=== PATIENT | male | born 1990 | race Caucasian/White ===

== ENCOUNTER 2023-10-27 16:29 | Emergency (ER) | payer MEDICAID ==
[~2023-10-27] VITALS: Ht 175.3 cm; Wt 90.7 kg
[2023-10-27 17:40] LABS: BASOPHILS % (AUTO) 0.2 % (0.0-2.0); EOSINOPHILS # (AUTO) 0.2 K/uL (0.0-0.7); EOSINOPHILS % (AUTO) 2.1 % (0.0-6.0); HEMATOCRIT 42 % (39-51); HEMOGLOBIN 14.2 g/dL (13.5-17.5); LYMPHOCYTES # (AUTO) 1.7 K/uL (0.8-4.8); LYMPHOCYTES % (AUTO) 22.3 % (20.0-44.0); MEAN CORPUSCULAR HEMOGLOBIN 30 PG (26.0-33.0); MEAN CORPUSCULAR HGB CONC 34 g/dl (31.0-36.0); MEAN CORPUSCULAR VOLUME 89 fL (80-96); MONOCYTES # (AUTO) 0.7 K/uL (0.1-1.30); MONOCYTES % (AUTO) 8.9 % (2.0-12.0); NEUTROPHILS % (AUTO) 66.5 % (43.0-81.0); PLATELET COUNT (AUTO) 198 K/uL (150-450); RED BLOOD CELL COUNT(AUTO) 4.67 MIL/uL (4.5-6.0); WHITE BLOOD COUNT (AUTO) 7.6 K/uL (4.3-11.0)
[2023-10-27 17:52] LABS: CALCIUM, SERUM 9.2 mg/dL (8.5-10.1); CARBON DIOXIDE 29 mmol/L (21-32); CHLORIDE 104 mmol/L (98-107); CREATININE 0.8 mg/dL (0.6-1.3); GLUCOSE 101 mg/dL (74-106); POTASSIUM 3.7 mmol/L (3.5-5.1); SODIUM SERUM 140 mmol/L (136-145); UREA NITROGEN, BLOOD 14 mg/dL (7-18)
[2023-10-27] MEDS ORDERED: IBUPROFEN 600 MG TABLET ONE (18:01)
[2023-10-27] MEDS: IBUPROFEN 600 MG TABLET PO ONE (18:01)
[2023-10-27 18:02] LABS: ALANINE AMINOTRANSFERASE 61 U/L (12-78); ALBUMIN 3.7 g/dL (3.4-5.0); ALKALINE PHOSPHATASE 92 U/L (46-116); ASPARTATE AMINOTRANSFERASE 21 U/L (15-37); BILIRUBIN,DIRECT 0.1 mg/dL (0.0-0.2); BILIRUBIN,TOTAL 0.5 mg/dL (0.2-1.0); NT-PRO BNP 36 pg/mL (0-125); TOTAL PROTEIN, SERUM 7.2 g/dL (6.4-8.2)
[2023-10-27 19:02] VITALS: BP 136/86; TEMP 98.1; O2SAT 98
== END 2023-10-27 19:02 | disposition home or self-care (01) ==
LOC: ER 16:29
DX: R07.89 Other chest pain (principal)
CPT/HCPCS: 36415; 71045-TC; 80048-TC; 80076-TC; 83880; 84484-TC; 85025-TC

== ENCOUNTER 2024-04-21 10:52 | Emergency (ER) | payer MEDICAID ==
[~2024-04-21] VITALS: Ht 177.8 cm; Wt 86.2 kg
[2024-04-21 11:14] VITALS: BP 153/88; TEMP 98.3
[2024-04-21] MEDS ORDERED: GENT5DRO23 LEFTEYE (12:11)
[2024-04-21 12:30] VITALS: O2SAT 98
== END 2024-04-21 12:30 | disposition home or self-care (01) ==
LOC: ER 10:56
DX: H01.004 Unspecified blepharitis left upper eyelid (principal); F17.200 Nicotine dependence, unspecified, uncomplicated; Z79.899 Other long term (current) drug therapy